=== PATIENT | male | born 1950 | race Caucasian/White ===

== ENCOUNTER 2017-11-20 17:59 | Outpatient (CLI) | payer OTHER ==
[2017-11-20] MEDS ORDERED: IOHEXOL 300mgI/mL 100 ML VIAL ONE (18:05)
--- NOTE | 2017-11-21 07:48 | Diagnostic Imaging Report ---
CT abdomen and pelvis with intravenous contrast Indication: Abdominal pain Comparison: CT abdomen and pelvis on 03/25/2015, Technique: Axial images were obtained from the lung bases to the bilateral proximal femurs with IV contrast. Coronal reconstructions were made. total DLP: 471, CTDI8.9 FINDINGS: Hypoventilatory atelectatic changes of the lung bases are noted. No evidence of focal hepatic lesions. There is probable hepatic steatosis. No focal splenic or adrenal lesions. No evidence of hydronephrosis or focal renal lesions. There is diffuse inflammatory changes surrounding the pancreas with small amount of free fluid. No focal pancreatic lesions identified. Small prostate gland calcifications are noted. Diffuse diverticulosis is noted. Moderate stool is noted. Postsurgical changes of right inguinal region are noted. Mild atherosclerosis is noted. No evidence of free abdominal air. Degenerative changes of the spine and pelvis. IMPRESSION: Diffuse inflammatory changes surrounding the pancreas with small amount of free fluid. Findings are most consistent with pancreatitis. Clinical correlation is recommended. Diverticulosis. Note, inflammatory changes of the mesentery extending adjacent to the large bowel margins are likely related to patient's pancreatitis. Diverticulitis be considered less likely. Evidence of prior cholecystectomy. Probable hepatic steatosis.
== END 2017-11-20 18:23 | disposition short-term general hospital (02) ==
LOC: RAD 17:59
PROVIDERS: ATTEND Emergency Medicine Emergency Medical Services
DX: K57.90 Diverticulosis of intestine, part unspecified, without perforation or abscess without bleeding (principal); Z90.49 Acquired absence of other specified parts of digestive tract
CPT/HCPCS: Q9967